=== PATIENT | female | born 1960 | race Caucasian/White ===

== ENCOUNTER 2017-08-05 11:01 | Inpatient (IN) | payer BC, OTHER ==
[~2017-08-05] VITALS: Ht 165.1 cm; Wt 95.0 kg
[2017-08-05] VITALS (8 sets, daily range): BP systolic 114–157; BP diastolic 59–84; PULSE 77–103; RESP 17–20; TEMP 97.4–99.4; O2SAT 97–99
--- NOTE | 2017-08-05 11:18 | PD ---
HPI Chief Complaint: Nosebleed Time Seen by Provider: 11:06 Travel History International Travel<30 days: No Contact w/Intl Traveler<30days: No Traveled to known affect area: No History of Present Illness HPI Patient had sinus surgery in July 25 in [place]. Patient is here vacationing. Onset of nosebleed which required an ER visit and packing which was performed at [facility], last hb 10. And she was referred to follow-up with Dr. Brandon. Apparently Dr. Brandon sent her [place] [facility] [place] possible interventional radiology procedure. Last meal was last night. Last drink was this morning at around 6 in the morning. The patient states that while in dr brandon's office packing was removed, clot was vacuumed and Dr. Brandon could not find a source of bleeding so he repacked and the bleeding continued, and he was not able to find the source, patient had bilateral anterior nares packed... PFSH Social History Tobacco Use: No Allergies-Medications (Allergen,Severity, Reaction): Coded Allergies: amoxicillin (Verified Allergy, Severe, rash, 08/05/17) clavulanic acid (Verified Allergy, Severe, rash, 08/05/17) Reported Meds & Prescriptions Reported Meds & Active Scripts Active Reported Synthroid (Levothyroxine Sodium) 112 Mcg Tab 112 Mcg PO DAILY Review of Systems Except as stated in HPI: all other systems reviewed are Neg General / Constitutional: No: Fever Eyes: No: Visual changes HENT: Positive: Nosebleed Cardiovascular: No: Chest Pain or Discomfort Respiratory: No: Shortness of Breath Gastrointestinal: No: Abdominal Pain Genitourinary: No: Dysuria Musculoskeletal: No: Pain Skin: No Rash Neurologic: No: Weakness Psychiatric: No: Depression Endocrine: No: Polydipsia Hematologic/Lymphatic: No: Easy Bruising Physical Exam Narrative GENERAL: SKIN: Warm and dry. HEAD: Atraumatic. Normocephalic. EYES: Pupils equal and round. No scleral icterus. No injection or drainage. ENT: No nasal bleeding or discharge. Mucous membranes pink and moist. NECK: Trachea midline. No JVD. CARDIOVASCULAR: Regular rate and rhythm. RESPIRATORY: No accessory muscle use. Clear to auscultation. Breath sounds equal bilaterally. GASTROINTESTINAL: Abdomen soft, non-tender, nondistended. Hepatic and splenic margins not palpable. MUSCULOSKELETAL: Extremities without clubbing, cyanosis, or edema. No obvious deformities. NEUROLOGICAL: Awake and alert. No obvious cranial nerve deficits. Motor grossly within normal limits. Five out of 5 muscle strength in the arms and legs. Normal speech. PSYCHIATRIC: Appropriate mood and affect; insight and judgment normal. Data Data Last Documented VS Vital Signs Date Time Temp Pulse Resp B/P (MAP) Pulse Ox O2 Delivery O2 Flow Rate FiO2 08/05/17 11:59 98 Room Air 08/05/17 11:15 99.4 103 20 114/59 (77) Orders Orders Invasive Rad Dept Consult (08/05/17 ) Complete Blood Count With Diff (08/05/17 11:29) Comprehensive Metabolic Panel (08/05/17 11:29) Prothrombin Time / Inr (Pt) (08/05/17 11:29) Act Partial Throm Time (Ptt) (08/05/17 11:29) Iv Access Insert/Monitor (08/05/17 11:29) Ecg Monitoring (08/05/17 11:29) Oximetry (08/05/17 11:29) Type And Screen (08/05/17 11:29) Midazolam Inj (Versed Inj) (08/05/17 12:34) Fentanyl Inj (Fentanyl Inj) (08/05/17 12:34) Labs Laboratory Tests Test 08/05/17 12:10 White Blood Count 9.0 TH/MM3 Red Blood Count 2.72 MIL/MM3 Hemoglobin 8.2 GM/DL Hematocrit 24.2 % Mean Corpuscular Volume 89.0 FL Mean Corpuscular Hemoglobin 30.3 PG Mean Corpuscular Hemoglobin Concent 34.1 % Red Cell Distribution Width 13.6 % Platelet Count 222 TH/MM3 Mean Platelet Volume 10.2 FL Neutrophils (%) (Auto) 82.8 % Lymphocytes (%) (Auto) 13.0 % Monocytes (%) (Auto) 3.6 % Eosinophils (%) (Auto) 0.1 % Basophils (%) (Auto) 0.5 % Neutrophils # (Auto) 7.5 TH/MM3 Lymphocytes # (Auto) 1.2 TH/MM3 Monocytes # (Auto) 0.3 TH/MM3 Eosinophils # (Auto) 0.0 TH/MM3 Basophils # (Auto) 0.0 TH/MM3 CBC Comment DIFF FINAL Differential Comment Prothrombin Time 11.3 SEC Prothromb Time International Ratio 1.1 RATIO Activated Partial Thromboplast Time 20.8 SEC Blood Urea Nitrogen 28 MG/DL Creatinine 0.64 MG/DL Random Glucose 109 MG/DL Total Protein 5.9 GM/DL Albumin 2.9 GM/DL Calcium Level 8.0 MG/DL Alkaline Phosphatase 66 U/L Aspartate Amino Transf (AST/SGOT) 8 U/L Alanine Aminotransferase (ALT/SGPT) 12 U/L Total Bilirubin 0.3 MG/DL Sodium Level 145 MEQ/L Potassium Level 3.9 MEQ/L Chloride Level 113 MEQ/L Carbon Dioxide Level 23.5 MEQ/L Anion Gap 9 MEQ/L Estimat Glomerular Filtration Rate 96 ML/MIN MDM Medical Decision Making Medical Screen Exam Complete: Yes Emergency Medical Condition: Yes Medical Record Reviewed: Yes Differential Diagnosis Anterior versus posterior versus postop bleeding Narrative Course As of 1257 the patient was transported to IR by transportation tech. CBC shows no leukocytosis, normal platelet count, however hemoglobin of 8.2 which was 10 when he was packed at [facility] Coagulation profile is within normal limits Electrolytes are within normal limits normal liver function normal kidney function Physician Communication Physician Communication [id number] on hold to speak with Dr. Brandon ENT... Dr. Jimenes to recommended IR for coagulation of bleeding, and also recommended admission for observation to the hospitalist group and to be consulted Diagnosis Primary Impression: Continued anterior epistaxis despite bilateral nasal packing Additional Impression: Interventional radiology procedure required Francesco Pinto MD Aug 05, 2017 11:18
[2017-08-05] MEDS ORDERED: SYNT112T PO (11:22)
[2017-08-05] MEDS ORDERED: fentaNYL CITRATE 250 MCG/5 ML AMP ONE (12:34)
[2017-08-05] MEDS ORDERED: MIDAZOLAM HCL 2 MG/2 ML VIAL ONE ×2 (12:34→14:21)
[2017-08-05 12:36] LABS: AUTOMATED NEUTROPHIL # 7.5 TH/MM3 (1.8-7.7); BASOPHIL % 0.5 % (0.0-2.0); EOSINOPHIL % 0.1 % (0.0-4.0); HEMATOCRIT 24.2 % (35.0-46.0); HEMOGLOBIN 8.2 GM/DL (11.6-15.3); LYMPHOCYTE # 1.2 TH/MM3 (1.0-4.8); MEAN CORPUSCULAR HEMOGLOBIN 30.3 PG (27.0-34.0); MEAN CORPUSCULAR HGB CONC 34.1 % (32.0-36.0); MEAN PLATELET VOLUME 10.2 FL (7.0-11.0); MONO % 3.6 % (0.0-8.0); MONOCYTE # 0.3 TH/MM3 (0-0.9); NEUT % 82.8 % (16.0-70.0); PLATELET COUNT 222 TH/MM3 (150-450); RED BLOOD COUNT 2.72 MIL/MM3 (4.00-5.30); RED CELL DISTRIBUTION WIDTH 13.6 % (11.6-17.2)
[2017-08-05 12:49] LABS: ALBUMIN 2.9 GM/DL (3.4-5.0); ALT (GPT) 12 U/L (10-53); AST (GOT) 8 U/L (15-37); BICARBONATE 23.5 MEQ/L (21.0-32.0); BLOOD UREA NITROGEN 28 MG/DL (7-18); CHLORIDE 113 MEQ/L (98-107); CREATININE 0.64 MG/DL (0.50-1.00); GLOMERULAR FILTRATION RATE 96 ML/MIN (>89); GLUCOSE,RANDOM 109 MG/DL (74-106); PROTHROMBIN TIME - PATIENT 11.3 SEC (9.8-11.6); SODIUM (NA) 145 MEQ/L (136-145)
[2017-08-05 12:50] LABS: INTERNATIONAL NORMALIZED RATIO 1.1 RATIO
[2017-08-05 12:52] LABS: ALKALINE PHOSPHATASE 66 U/L (45-117); TOTAL BILIRUBIN ADULT 0.3 MG/DL (0.2-1.0); TOTAL PROTEIN 5.9 GM/DL (6.4-8.2)
[2017-08-05] MEDS ORDERED: ONDANSETRON HCL 4 MG/2 ML VIAL IVP PRN (13:30)
[2017-08-05] MEDS ORDERED: SENNOSIDES 8.6 MG TAB PO PRN (13:30)
[2017-08-05] MEDS ORDERED: ACETAMINOPHEN 325 MG TAB PO PRN ×2 (13:30)
[2017-08-05] MEDS ORDERED: LACTULOSE SYRUP 20 GM/30 ML CUP PO PRN (13:30)
[2017-08-05] MEDS ORDERED: NALOXONE HCL 0.4 MG/ML AMP IV PUSH PRN (13:30)
[2017-08-05] MEDS ORDERED: traMADol HCL 50 MG TAB PO PRN (13:30)
[2017-08-05] MEDS ORDERED: MAGNESIUM HYDROXIDE SUSP 30 ML CUP PO PRN (13:30)
[2017-08-05] MEDS ORDERED: SODIUM CHLORIDE 0.9% FLUSH 10 ML FLUSH IV FLUSH PRN (13:30)
[2017-08-05] MEDS ORDERED: BISACODYL 10 MG SUPP RECTAL PRN (13:30)
[2017-08-05] MEDS ORDERED: LORazepam 2 MG/ML VIAL ONE (13:31)
[2017-08-05] MEDS ORDERED: IODIXANOL 320 MG/ML 50 ML VIAL (for RAD SPEC) I-ARTERIAL ONE (13:32)
[2017-08-05] MEDS ORDERED: NITROGLYCERIN 1000 MCG/5 ML VIAL OTHER ONE (13:32)
[2017-08-05] MEDS ORDERED: VERAPAMIL HCL 5 MG/2 ML VIAL ONE (14:12)
[2017-08-05] MEDS ORDERED: NITROGLYCERIN 2% OINT 1 GM PACKET ONE (14:14)
[2017-08-05] MEDS ORDERED: SODIUM CHLORIDE 0.9% INJ 10 ML ONE (14:51)
[2017-08-05] MEDS ORDERED: PROTAMINE SULFATE 50 MG/5 ML VIAL ONE (15:10)
--- NOTE | 2017-08-05 15:56 | PD.RAD ---
Post Procedure Progress Note Pre Procedure Diagnosis: (1) Post surgical epistaxis Post Procedure Diagnosis: (1) Post surgical epistaxis Procedure Date: Aug 05, 2017 Supervising Radiologist: Caden Holguin Proceduralist/Assist: Geovanny Mayfield RT(R), Alysia Ricketts RT(R) Anesthesia: Local, Analgesia, Conscious Sedation Plan of Activity Patient to Unit: ROPU Patient Condition: Good See PACS Report for procedural detail/treatment Vascular-Arterial Procedure Procedure 1 Procedure Site: Right Carotid (maxillary artery) Procedure(s): Angiogram, Embolization (particles and coils) Access Access Site(s): Right Femoral Artery Closure Site(s): Right manual pressure Findings: No active bleed identified (packing in place). Right maxillary artery embolized with 300-500 micron particles and 3mm tornado coils. Caden Holguin MD Aug 05, 2017 15:56
--- NOTE | 2017-08-05 17:03 | HHI.HP ---
[facility]Staff Admission Diagnosis REFRACTORY ANTERIOR EPISTAXIS Diagnoses: Chief Complaint: epistaxis Travel History International Travel<30 Days: No Contact w/Intl Traveler <30 Da: No Traveled to Known Affected Are: No History of Present Illness This is a 57-year-old female who was sent from her ENT clinic because of epistaxis. Started 2 days ago as intermittent bleeding from both nostrils worse on the right not related to trauma. Patient had nasal polyps removed from both nostrils about 10 days ago in [place]. She had nasal packing at [facility] yesterday. Today she started bleeding again and went to see Dr. Brandon who was not able to visualize the source of bleeding and was sent here for IR procedure. Dr. Holguin embolized the right maxillary artery with 300-500 micron particles and 3mm tornado coils. At this time patient seen in the recovery room with nasal packing. There is no active bleeding. Denies weakness, dizziness, chest pain and shortness of breath. States she was nauseous and vomited ingested blood yesterday. All other systems reviewed negative Review of Systems Except as stated in HPI: all other systems reviewed are Neg Past Family Social History Past Medical History As previously mentioned. Hypothyroidism Past Surgical History Hysterectomy, hernia repair, sinus surgery and multiple orthopedic surgery Reported Medications Levothyroxine. Occasional meloxicam Allergies: Coded Allergies: amoxicillin (Verified Allergy, Severe, rash, 08/05/17) clavulanic acid (Verified Allergy, Severe, rash, 08/05/17) Family History No history of bleeding. Social History Occasional alcohol use does not smoke Physical Exam Vital Signs Vital Signs Date Time Temp Pulse Resp B/P (MAP) Pulse Ox O2 Delivery O2 Flow Rate FiO2 08/05/17 16:15 84 18 140/75 (96) 97 08/05/17 16:00 85 18 140/80 (100) 98 08/05/17 15:45 97.4 77 18 138/80 (99) 98 08/05/17 11:59 98 Room Air 08/05/17 11:15 99.4 103 20 114/59 (77) 99 Physical Exam GENERAL: This is a well-nourished, well-developed patient, in no apparent distress. SKIN: No rashes, ecchymoses or lesions. Cool and dry. HEAD: Atraumatic. Normocephalic. No temporal or scalp tenderness. EYES: Pupils equal round and reactive. Extraocular motions intact. No scleral icterus. No injection or drainage. ENT: Nasal packing in place with no active bleeding NECK: Trachea midline. No JVD or lymphadenopathy. Supple, nontender, no meningeal signs. CARDIOVASCULAR: Regular rate and rhythm without murmurs, gallops, or rubs. RESPIRATORY: Clear to auscultation. Breath sounds equal bilaterally. No wheezes , rales, or rhonchi. GASTROINTESTINAL: Abdomen soft, non-tender, nondistended. No guarding. MUSCULOSKELETAL: Extremities without clubbing, cyanosis, or edema. No joint tenderness, effusion, or edema noted. No calf tenderness. Negative Homans sign bilaterally. NEUROLOGICAL: Awake and alert. Cranial nerves II through XII intact. Motor and sensory grossly within normal limits. Five out of 5 muscle strength in all muscle groups. Normal speech. Laboratory Laboratory Tests Test 08/05/17 12:10 White Blood Count 9.0 Red Blood Count 2.72 Hemoglobin 8.2 Hematocrit 24.2 Mean Corpuscular Volume 89.0 Mean Corpuscular Hemoglobin 30.3 Mean Corpuscular Hemoglobin Concent 34.1 Red Cell Distribution Width 13.6 Platelet Count 222 Mean Platelet Volume 10.2 Neutrophils (%) (Auto) 82.8 Lymphocytes (%) (Auto) 13.0 Monocytes (%) (Auto) 3.6 Eosinophils (%) (Auto) 0.1 Basophils (%) (Auto) 0.5 Neutrophils # (Auto) 7.5 Lymphocytes # (Auto) 1.2 Monocytes # (Auto) 0.3 Eosinophils # (Auto) 0.0 Basophils # (Auto) 0.0 CBC Comment DIFF FINAL Differential Comment Prothrombin Time 11.3 Prothromb Time International Ratio 1.1 Activated Partial Thromboplast Time 20.8 Blood Urea Nitrogen 28 Creatinine 0.64 Random Glucose 109 Total Protein 5.9 Albumin 2.9 Calcium Level 8.0 Alkaline Phosphatase 66 Aspartate Amino Transf (AST/SGOT) 8 Alanine Aminotransferase (ALT/SGPT) 12 Total Bilirubin 0.3 Sodium Level 145 Potassium Level 3.9 Chloride Level 113 Carbon Dioxide Level 23.5 Anion Gap 9 Estimat Glomerular Filtration Rate 96 Result Diagram: 08/05/17 1210 08/05/17 1210 Caprini VTE Risk Assessment Caprini VTE Risk Assessment: No/Low Risk (score <= 1) Caprini Risk Assessment Model Point Value = 1 Point Value = 2 Point Value = 3 Point Value = 5 Age 41-60 Minor surgery BMI > 25 kg/m2 Swollen legs Varicose veins or History of unexplained or recurrent spontaneous Oral contraceptives or hormone replacement Sepsis (< 1 month) Serious lung disease, including pneumonia (< 1 month) Abnormal pulmonary function Acute myocardial infarction Congestive heart failure (< 1 month) History of inflammatory bowel disease Medical patient at bed rest Age 61-74 Arthroscopic surgery Major open surgery (> 45 min) Laparoscopic surgery (> 45 min) Malignancy Confined to bed (> 72 hours) Immobilizing plaster cast Central venous access Age >= 75 History of VTE Family history of VTE Factor V Leiden Prothrombin [id number] Lupus anticoagulant Anticardiolipin antibodies Elevated serum homocysteine Heparin-induced thrombocytopenia Other congenital or acquired thrombophilia Stroke (< 1 month) Elective arthroplasty Hip, pelvis, or leg fracture Acute spinal cord injury (< 1 month) Prophylaxis Regimen Total Risk Factor Score Risk Level Prophylaxis Regimen 0-1 Low Early ambulation 2 Moderate Order ONE of the following: *Sequential Compression Device (SCD) *Heparin 5000 units SQ BID 3-4 Higher Order ONE of the following medications: *Heparin 5000 units SQ TID *Enoxaparin/Lovenox 40 mg SQ daily (WT < 150 kg, CrCl > 30 mL/min) *Enoxaparin/Lovenox 30 mg SQ daily (WT < 150 kg, CrCl > 10-29 mL/min) *Enoxaparin/Lovenox 30 mg SQ BID (WT < 150 kg, CrCl > 30 mL/min) AND/OR *Sequential Compression Device (SCD) 5 or more Highest Order ONE of the following medications: *Heparin 5000 units SQ TID (Preferred with Epidurals) *Enoxaparin/Lovenox 40 mg SQ daily (WT < 150 kg, CrCl > 30 mL/min) *Enoxaparin/Lovenox 30 mg SQ daily (WT < 150 kg, CrCl > 10-29 mL/min) *Enoxaparin/Lovenox 30 mg SQ BID (WT < 150 kg, CrCl > 30 mL/min) AND *Sequential Compression Device (SCD) Assessment and Plan Problem List: (1) Post surgical epistaxis Assessment and Plan This is a 57-year-old female who was sent from her ENT clinic because of epistaxis. Started 2 days ago as intermittent bleeding from both nostrils worse on the right not related to trauma. Patient had nasal polyps removed from both nostrils about 10 days ago in [place]. She had nasal packing at [facility] yesterday. Today she started bleeding again and went to see Dr. Brandon who was not able to visualize the source of bleeding and was sent here for IR procedure. Post surgical epistaxis status post embolization of the right maxillary artery with 300-500 micron particles and 3mm tornado coils. Patient will be kept in the hospital for surgery in the morning by ENT. N.p.o. post midnight and start IV hydration. Pain management with tramadol and IV morphine. Anemia secondary to acute blood loss. Will monitor and transfuse to keep hemoglobin at least 7 Hypothyroidism. Stable continue levothyroxine DVT prophylaxis with SCD and early ambulation. Discussed Condition With Patient and sister Kiran Griffin MD Aug 05, 2017 17:03
--- NOTE | 2017-08-05 17:11 | RADRPT ---
EXAM DATE/TIME: 08/05/2017 13:00 [facility] COMPARISON: No previous studies available for comparison. INDICATIONS : Patient presents with persistent epistaxis post sinus surgery in need of angiogram and possible inter vention. MEDICAL HISTORY : Thyroid disease SURGICAL HISTORY : Hysterectomy Sinus polyp removal ENCOUNTER: Initial ACUITY: 1 day PAIN SCORE: 3/10 LOCATION: Headache FLUORO TIME: 14.5 minutes IMAGE SERIES: 10 ACCESS SITE: Right Femoral artery SEDATION TIME: 60 minutes CONTRAST: 1.) 60 cc Visipaque (iodixanol) MEDICATION(S): 1.) 1 mg lorazepam (Ativan) IV 2.) 250 mcg fentanyl (Sublimaze) IV 3.) 4 mg midazolam (Versed) IV 4.) 3000 units Heparin IV 5.) 200 mcg Nitroglycerin IV 6.) 30 mg Protamine IV Intra-procedural antibiotics were given as prescribed above. DEVICE(S): 1.) Right artery Maxillary embolic coil(s).018 3x2 Tornado 2.) Right artery Maxillary embolic coil(s).018 3x2 Tornado 3.) Right artery Maxillary PVA PROCEDURE : 1. Ultrasound-guided puncture of the radial artery. 2. Conscious sedation with continuous EKG and Oximetry monitoring. 3. Angiography of the right maxillary artery 4. particle embolization, right maxillary artery 5. coil embolization, right maxillary artery The risks, benefits and alternatives to the procedure were explained and verbal and written consent w as obtained. The site was prepped in sterile fashion. Full sterile technique was used, including cap, mask, steri le gloves and gown and a large sterile sheet. Hand hygiene and 2% chlorhexidine and/or betadine/alco hol prep was utilized per protocol for cutaneous antisepsis. Sterile gel and sterile probe cover wer e utilized for ultrasound guidance. The skin and subcutaneous tissues were infiltrated with local an esthetic solution. Using ultrasound guidance, a 21 gauge micropuncture needle was advanced into the right common femoral artery. The 018 wire was advanced through the needle over which the 3-4 dilator was placed. Through the outer 4 Albanian dilator, the 035 Glidewire was advanced into the abdominal aorta. 4 Albanian side-po rt sheath was advanced over the wire. Side port was aspirated, flushed and locked. A ESEQUIEL 2 catheter was used to select the brachiocephalic artery and subsequently the right common carot id. Contrast injection confirmed position. Roadmap was performed to identify the external carotid cir culation. Over a Magic torque wire, a JB2 and 4 Albanian side-port sheath were exchanged for a 70 cm 5 Albanian Rabbe which was placed in the common carotid artery. A verapamil flush bag was connected to th e side-port sheath. At this point, 1 inch nitroglycerin paste was placed on the right neck and the pa tient was administered 3000 units of heparin IV. A 100 cm 038 glide hockey-stick catheter was then advanced into the external carotid with the Glidewi re. A second flush bag was connected to the catheter. Through the catheter, the renegade hi Los micro catheter and microwire were advanced through the external carotid, past the middle meningeal and out the maxillary artery. Position was confirmed with positive contrast. This demonstrated some retrograd e flow through the maxillary artery probably due to proximal vasospasm. This was treated by opening u p the verapamil drip through the carrier sheath and adding 200 mcg of nitroglycerin through the micro catheter. There was zoroastrianism of antegrade flow. Approximately 1 cc of 300-500 PVA particles were then injected through the microcatheter into the right maxillary artery. With reduction of antegrade flow, a series of 3, 3 mm Tornado coils were placed into the maxillary artery with cessation of ante grade flow The puncture site was closed with manual pressure and hemostasis was obtained. The patient tolerated the procedure well and there were no complications. Conscious sedation was performed with the prescribed dosages and duration as above in the presence of an independent trained radiology nurse to assist in the monitoring of the patient. EKG and oximetry remained stable throughout the procedure. CONCLUSION: Right maxillary artery embolization with particles and coils as above. Caden Holguin MD on August 05, 2017 at 16:59 Board Certified Radiologist. This report was verified electronically.
[2017-08-05] MEDS: NS + KCL 20 MEQ INJ 1,000 ML IV SCH (19:37)
[2017-08-05] MEDS: DOCUSATE SODIUM 50 MG/SENNA 8.6 MG TAB PO SCH (21:00)
[2017-08-05] MEDS: SODIUM CHLORIDE 0.9% FLUSH 10 ML FLUSH IV FLUSH SCH (21:00)
[2017-08-06] VITALS (10 sets, daily range): BP systolic 107–137; BP diastolic 55–70; PULSE 82–98; RESP 14–18; TEMP 98.2–98.7; O2SAT 97–100
[2017-08-06] MEDS: NS + KCL 20 MEQ INJ 1,000 ML IV SCH ×2 (02:19→16:36)
[2017-08-06] MEDS: LEVOTHYROXINE SODIUM 112 MCG TAB PO SCH (05:38)
[2017-08-06 06:44] LABS: AUTOMATED NEUTROPHIL # 5.8 TH/MM3 (1.8-7.7); BASOPHIL % 0.6 % (0.0-2.0); EOSINOPHIL % 0.3 % (0.0-4.0); LYMPH % 20.5 % (9.0-44.0); LYMPHOCYTE # 1.6 TH/MM3 (1.0-4.8); MEAN CELL VOLUME 88.2 FL (80.0-100.0); MEAN CORPUSCULAR HEMOGLOBIN 29.7 PG (27.0-34.0); MEAN CORPUSCULAR HGB CONC 33.7 % (32.0-36.0); MEAN PLATELET VOLUME 9.7 FL (7.0-11.0); MONO % 5.8 % (0.0-8.0); MONOCYTE # 0.5 TH/MM3 (0-0.9); NEUT % 72.8 % (16.0-70.0); PLATELET COUNT 193 TH/MM3 (150-450); RED CELL DISTRIBUTION WIDTH 13.9 % (11.6-17.2)
[2017-08-06 06:59] LABS: HEMATOCRIT 20.3 % (35.0-46.0); HEMOGLOBIN 6.8 GM/DL (11.6-15.3)
[2017-08-06 07:35] LABS: BICARBONATE 24.2 MEQ/L (21.0-32.0); CALCIUM 8.1 MG/DL (8.5-10.1); CREATININE 0.68 MG/DL (0.50-1.00)
[2017-08-06] MEDS ORDERED: SODIUM CHLOR 0.9% 250 ML INJ 250 ML IV ONE (07:45)
[2017-08-06] MEDS: DOCUSATE SODIUM 50 MG/SENNA 8.6 MG TAB PO SCH ×2 (09:00→20:46)
[2017-08-06] MEDS: SODIUM CHLORIDE 0.9% FLUSH 10 ML FLUSH IV FLUSH SCH ×2 (09:00→20:46)
--- NOTE | 2017-08-06 09:20 | HHI.PR ---
Subjective Remarks Packing in place. No active bleed Objective Vital Signs Date Time Temp Pulse Resp B/P (MAP) Pulse Ox O2 Delivery O2 Flow Rate FiO2 08/06/17 08:03 98.5 98 18 129/65 (86) 99 08/06/17 02:14 98.4 90 14 127/67 (87) 100 08/05/17 20:53 99.1 96 18 123/61 (81) 98 08/05/17 17:45 88 18 157/84 (108) 99 08/05/17 17:15 83 17 153/83 (106) 98 08/05/17 16:15 84 18 140/75 (96) 97 08/05/17 16:00 85 18 140/80 (100) 98 08/05/17 15:45 97.4 77 18 138/80 (99) 98 08/05/17 11:59 98 Room Air 08/05/17 11:15 99.4 103 20 114/59 (77) 99 I/O 08/05/17 08/05/17 08/05/17 08/06/17 08/06/17 08/06/17 07:00 15:00 23:00 07:00 15:00 23:00 Intake Total 120 ml Balance 120 ml Intake Oral 120 ml # Voids 3 Result Diagram: 08/06/17 0600 08/06/17 0600 Assessment and Plan Assessment and Plan Significant epistaxis. Agree with transfusion. Would keep in house today. Started Ancef. Would keep packing in place until she returns home to [place]. Faustino Brandon MD Aug 06, 2017 09:20
[2017-08-06] MEDS: ceFAZolin 1,000 MG/NS 100 ML IV SCH ×4 (09:27→16:35)
--- NOTE | 2017-08-06 09:50 | HHI.PR ---
Subjective Remarks in no acute distress. but still with some nosebleed. now complaining of chest pain. Objective Vitals Vital Signs Date Time Temp Pulse Resp B/P (MAP) Pulse Ox O2 Delivery O2 Flow Rate FiO2 08/06/17 08:03 98.5 98 18 129/65 (86) 99 08/06/17 02:14 98.4 90 14 127/67 (87) 100 08/05/17 20:53 99.1 96 18 123/61 (81) 98 08/05/17 17:45 88 18 157/84 (108) 99 08/05/17 17:15 83 17 153/83 (106) 98 08/05/17 16:15 84 18 140/75 (96) 97 08/05/17 16:00 85 18 140/80 (100) 98 08/05/17 15:45 97.4 77 18 138/80 (99) 98 08/05/17 11:59 98 Room Air 08/05/17 11:15 99.4 103 20 114/59 (77) 99 I/O 08/05/17 08/05/17 08/05/17 08/06/17 08/06/17 08/06/17 07:00 15:00 23:00 07:00 15:00 23:00 Intake Total 120 ml Balance 120 ml Intake Oral 120 ml # Voids 3 Result Diagram: 08/06/17 0600 08/06/17 0600 Imaging Last Impressions Embolization 08/05/17 0000 Signed Impressions: Service Date/Time: Saturday, August 05, 2017 13:00 - CONCLUSION: Right maxillary artery embolization with particles and coils as above. Caden Holguin MD Objective Remarks GENERAL: This is a well-nourished, well-developed patient, in no apparent distress. HEENT; nasal packing in place. CARDIOVASCULAR: Regular rate and regular rhythm without murmurs, gallops, or rubs. RESPIRATORY: Clear to auscultation. Breath sounds equal bilaterally. No wheezes , rales, or rhonchi. GASTROINTESTINAL: Abdomen soft, non-tender, nondistended. Normal, active bowel sounds MUSCULOSKELETAL: Extremities without clubbing, cyanosis, or edema. NEURO: Alert & Oriented x4 to person, place, time, situation. Moves all ext x4 Medications and IVs Inpatient Medications Acetaminophen (Tylenol) 650 mg Q6H PRN PO PAIN SCALE 1 TO 2; Start 08/05/17 at 13:30 Bisacodyl (Dulcolax Supp) 10 mg DAILY PRN RECTAL SEVERE CONSITIPATION; Start at 13:30 Cefazolin Sodium 1000 mg/Sodium Chloride 100 ml @ 200 mls/hr Q8H IV Last administered on 08/06/17at 09:27; Start 08/06/17 at 09:00 Lactulose (Lactulose Liq) 30 ml DAILY PRN PO SEVERE CONSITIPATION; Start at 13:30 Levothyroxine Sodium (Synthroid) 112 mcg DAILY@0600 PO Last administered on at 05:38; Start 08/06/17 at 06:00 Magnesium Hydroxide (Milk Of Magnesia Liq) 30 ml Q12H PRN PO Mild constipation ; Start 08/05/17 at 13:30 Naloxone HCl (Narcan Inj) 0.4 mg UNSCH PRN IV PUSH SEE LABEL COMMENTS; Start at 13:30 Ondansetron HCl (Zofran Inj) 4 mg Q6H PRN IVP NAUSEA OR VOMITING; Start at 13:30 Potassium Chloride/Sodium Chloride 1,000 ml @ 84 mls/hr [id number] IV Last administered on 08/06/17at 02:19; Start 08/05/17 at 14:00 Senna/Docusate Sodium (Margarita-Colace) 1 tab BID PO ; Start 08/05/17 at 21:00 Sennosides (Senokot) 17.2 mg Q12H PRN PO Moderate constipation; Start 08/05/17 at 13:30 Sodium Chloride 250 ml @ 15 mls/hr ONCE ONCE IV ; Start 08/06/17 at 07:45; Stop 08/07/17 at 00:24 Sodium Chloride (NS Flush) 2 ml BID IV FLUSH ; Start 08/05/17 at 21:00 Tramadol HCl (Ultram) 100 mg Q4H PRN PO PAIN SCALE 6 TO 10; Start 08/05/17 at 13:30 A/P Problem List: (1) Post surgical epistaxis Assessment and Plan This is a 57-year-old female who was sent from her ENT clinic because of epistaxis. Started 2 days ago as intermittent bleeding from both nostrils worse on the right not related to trauma. Patient had nasal polyps removed from both nostrils about 10 days ago in [place]. She had nasal packing at [facility] yesterday. Post surgical epistaxis status post embolization of the right maxillary artery with 300-500 micron particles and 3mm tornado coils. ENT f/u appreciated. Anemia secondary to acute blood loss. will transfuse with PRBC and monitor H/H. chest pain; will check troponin/ EKG and CXR. Hypothyroidism. Stable continue levothyroxine DVT prophylaxis with SCD and early ambulation. Discharge Planning not ready for discharge today. Yared Carreon MD Aug 06, 2017 09:50
--- NOTE | 2017-08-06 10:06 | RADRPT ---
EXAM DATE/TIME: 08/06/2017 09:47 [facility] COMPARISON: No previous studies available for comparison. INDICATIONS : Chest pain today. MEDICAL HISTORY : None. SURGICAL HISTORY : None. ENCOUNTER: Initial ACUITY: 1 day PAIN SCORE: 5/10 LOCATION: Bilateral chest FINDINGS: A single view of the chest demonstrates the lungs to be symmetrically aerated without evidence of mas s, infiltrate or effusion. The cardiomediastinal contours are unremarkable. Osseous structures are intact. CONCLUSION: No acute disease. Rashaun Moy MD FACR on August 06, 2017 at 10:04 Board Certified Radiologist. This report was verified electronically.
--- NOTE | 2017-08-06 11:33 | EKG ---
Date Performed: 08/06/2017 Time Performed: 09:59:25 PTAGE: 57 years EKG: Sinus rhythm NONSPECIFIC T-WAVE ABNORMALITY BORDERLINE ECG NO PREVIOUS TRACING DOCTOR: Raymundo De La Cruz Interpretating Date/Time 08/06/2017 11:31:49
[2017-08-06 18:50] LABS: HEMATOCRIT 22.2 % (35.0-46.0); HEMOGLOBIN 7.6 GM/DL (11.6-15.3)
[2017-08-07] MEDS: NS + KCL 20 MEQ INJ 1,000 ML IV SCH ×2 (00:39→16:50)
[2017-08-07] MEDS: ceFAZolin 1,000 MG/NS 100 ML IV SCH ×6 (00:39→16:50)
[2017-08-07 04:10] VITALS: BP 118/69; PULSE 88; RESP 16; O2SAT 99
[2017-08-07] MEDS: LEVOTHYROXINE SODIUM 112 MCG TAB PO SCH (05:43)
[2017-08-07 07:58] VITALS: BP 116/61; PULSE 78; RESP 19; TEMP 98; O2SAT 97
[2017-08-07] MEDS: SODIUM CHLORIDE 0.9% FLUSH 10 ML FLUSH IV FLUSH SCH ×2 (09:12→21:00)
[2017-08-07] MEDS: DOCUSATE SODIUM 50 MG/SENNA 8.6 MG TAB PO SCH ×2 (09:13→21:00)
--- NOTE | 2017-08-07 09:41 | HHI.PR ---
Subjective Remarks in no acute distress. still with some nosebleed- nasal packing in place. Objective Vitals Vital Signs Date Time Temp Pulse Resp B/P (MAP) Pulse Ox O2 Delivery O2 Flow Rate FiO2 08/07/17 07:58 98.0 78 19 116/61 (79) 97 08/07/17 04:10 88 16 118/69 (85) 99 08/06/17 23:51 98.5 87 16 107/67 (80) 97 08/06/17 21:23 98.2 93 16 116/59 (78) 97 08/06/17 19:05 98.7 88 17 133/66 (88) 99 08/06/17 15:54 98.3 95 18 137/70 (92) 99 08/06/17 15:33 98.5 89 16 109/55 98 08/06/17 12:33 98.4 82 18 130/68 (88) 100 08/06/17 11:57 98.4 86 16 110/57 99 08/06/17 11:27 98.3 87 16 116/57 99 I/O 08/06/17 08/06/17 08/06/17 08/07/17 08/07/17 08/07/17 07:00 15:00 23:00 07:00 15:00 23:00 Intake Total 130 ml 860 ml Balance 130 ml 860 ml Intake Oral 120 ml Packed Cells 850 ml Blood Product IV Normal Saline Flush 10 ml 10 ml # Voids 3 3 Result Diagram: 08/06/17 1706 08/06/17 0600 Imaging Last Impressions Chest X-Ray 08/06/17 0000 Signed Impressions: Service Date/Time: Sunday, August 06, 2017 09:47 - CONCLUSION: No acute disease. Rashaun Moy MD FACR Embolization 08/05/17 0000 Signed Impressions: Service Date/Time: Saturday, August 05, 2017 13:00 - CONCLUSION: Right maxillary artery embolization with particles and coils as above. Caden Holguin MD Objective Remarks GENERAL: This is a well-nourished, well-developed patient, in no apparent distress. HEENT; nasal packing in place. CARDIOVASCULAR: Regular rate and regular rhythm without murmurs, gallops, or rubs. RESPIRATORY: Clear to auscultation. Breath sounds equal bilaterally. No wheezes , rales, or rhonchi. GASTROINTESTINAL: Abdomen soft, non-tender, nondistended. Normal, active bowel sounds MUSCULOSKELETAL: Extremities without clubbing, cyanosis, or edema. NEURO: Alert & Oriented x4 to person, place, time, situation. Moves all ext x4 Medications and IVs Inpatient Medications Acetaminophen (Tylenol) 650 mg Q6H PRN PO PAIN SCALE 1 TO 2; Start 08/05/17 at 13:30 Bisacodyl (Dulcolax Supp) 10 mg DAILY PRN RECTAL SEVERE CONSITIPATION; Start at 13:30 Cefazolin Sodium 1000 mg/Sodium Chloride 100 ml @ 200 mls/hr Q8H IV Last administered on 08/07/17at 09:13; Start 08/06/17 at 09:00 Lactulose (Lactulose Liq) 30 ml DAILY PRN PO SEVERE CONSITIPATION; Start at 13:30 Levothyroxine Sodium (Synthroid) 112 mcg DAILY@0600 PO Last administered on at 05:43; Start 08/06/17 at 06:00 Magnesium Hydroxide (Milk Of Magnesia Liq) 30 ml Q12H PRN PO Mild constipation ; Start 08/05/17 at 13:30 Naloxone HCl (Narcan Inj) 0.4 mg UNSCH PRN IV PUSH SEE LABEL COMMENTS; Start at 13:30 Ondansetron HCl (Zofran Inj) 4 mg Q6H PRN IVP NAUSEA OR VOMITING; Start at 13:30 Potassium Chloride/Sodium Chloride 1,000 ml @ 84 mls/hr [id number] IV Last administered on 08/07/17at 00:39; Start 08/05/17 at 14:00 Senna/Docusate Sodium (Margarita-Colace) 1 tab BID PO ; Start 08/05/17 at 21:00 Sennosides (Senokot) 17.2 mg Q12H PRN PO Moderate constipation; Start 08/05/17 at 13:30 Sodium Chloride 250 ml @ 15 mls/hr ONCE ONCE IV Last administered on at 11:42; Start 08/06/17 at 07:45; Stop 08/07/17 at 00:24; Status DC Sodium Chloride (NS Flush) 2 ml BID IV FLUSH Last administered on 08/07/17at 09: 12; Start 08/05/17 at 21:00 Tramadol HCl (Ultram) 100 mg Q4H PRN PO PAIN SCALE 6 TO 10; Start 08/05/17 at 13:30 A/P Problem List: (1) Post surgical epistaxis Assessment and Plan This is a 57-year-old female who was sent from her ENT clinic because of epistaxis. Started 2 days ago as intermittent bleeding from both nostrils worse on the right not related to trauma. Patient had nasal polyps removed from both nostrils about 10 days ago in [place]. She had nasal packing at [facility] yesterday. Post surgical epistaxis status post embolization of the right maxillary artery with 300-500 micron particles and 3mm tornado coils. awaiting IR and ENT f/u and recommendations. Anemia secondary to acute blood loss. transfused with PRBC- repeat H/H today. chest pain; CXR negative- troponin negative. Hypothyroidism. Stable continue levothyroxine DVT prophylaxis with SCD and early ambulation. Discharge Planning when cleared by ENT and IR- awaiting H/H. Yared Carreon MD Aug 07, 2017 09:41
[2017-08-07 11:55] LABS: HEMATOCRIT 22.7 % (35.0-46.0); HEMOGLOBIN 7.8 GM/DL (11.6-15.3); MEAN CORPUSCULAR HEMOGLOBIN 30.4 PG (27.0-34.0); MEAN CORPUSCULAR HGB CONC 34.5 % (32.0-36.0); MEAN PLATELET VOLUME 9.2 FL (7.0-11.0); PLATELET COUNT 190 TH/MM3 (150-450); RED BLOOD COUNT 2.58 MIL/MM3 (4.00-5.30); RED CELL DISTRIBUTION WIDTH 14.2 % (11.6-17.2); WHITE BLOOD COUNT 7.1 TH/MM3 (4.0-11.0)
[2017-08-07 12:02] VITALS: BP 113/67; PULSE 85; RESP 19; TEMP 98.1; O2SAT 99
--- NOTE | 2017-08-07 13:57 | PD.RAD ---
Radiology Note Patient eating soup in room. States she is not 100% but feels better. Groin soft and dry. If tolerates lunch without emesis, OK to D/C from IR standpoint. Caden Holguin MD Aug 07, 2017 13:57
--- NOTE | 2017-08-07 14:10 | PD.RAD ---
Radiology Note Pt transfused yesterday with appropriate bump in H/H. Complains of ongoing ooze from right nares. No drop in H/H overnight, however. Discussed with Dr. Brandon from ENT. He has been in discussion with pts surgeon from [place] and they have collectivel decided to transfer pt to [facility] for further evaluation and possible therapy. Discussed with pt herself who agrees with plan Caden Holguin MD Aug 07, 2017 14:10
--- NOTE | 2017-08-07 14:21 | HHI.DCPOC ---
Discharge Care Plan Diagnosis: (1) Post surgical epistaxis Goals to Promote Your Health * To prevent worsening of your condition and complications * To maintain your health at the optimal level Directions to Meet Your Goals Take your medications as prescribed Follow your dietary instruction Follow activity as directed Keep your appointments as scheduled Take your immunizations and boosters as scheduled If your symptoms worsen call your PCP, if no PCP go to Urgent Care Center or Emergency Room Smoking is Dangerous to Your Health. Avoid second hand smoke Call the 24-hour hour crisis hotline for domestic abuse at Monica Fritz PA-C Aug 07, 2017 14:21
[2017-08-07 15:45] VITALS: BP 113/57; PULSE 86; RESP 18; TEMP 97.9; O2SAT 100
[2017-08-08 01:15] VITALS: BP 137/64; PULSE 86; RESP 16; TEMP 98.5; O2SAT 96
[2017-08-08] MEDS: NS + KCL 20 MEQ INJ 1,000 ML IV SCH ×2 (01:35→13:30)
[2017-08-08] MEDS: ceFAZolin 1,000 MG/NS 100 ML IV SCH ×6 (04:01→18:03)
[2017-08-08 04:23] VITALS: BP 127/58; PULSE 76; RESP 17; TEMP 98.7; O2SAT 98
[2017-08-08] MEDS: LEVOTHYROXINE SODIUM 112 MCG TAB PO SCH (06:00)
[2017-08-08 08:01] VITALS: BP 124/64; PULSE 76; RESP 20; TEMP 98.2; O2SAT 98
[2017-08-08 08:41] LABS: HEMATOCRIT 22.5 % (35.0-46.0); HEMOGLOBIN 7.7 GM/DL (11.6-15.3)
[2017-08-08] MEDS: DOCUSATE SODIUM 50 MG/SENNA 8.6 MG TAB PO SCH ×2 (09:00→22:30)
--- NOTE | 2017-08-08 09:03 | HHI.PR ---
Subjective Remarks Follow up for epistaxis. The patient reports continued bleeding around packing of the right nare and down the back of the throat. She denies any lightheadedness, dizziness, chest pain or shortness of breath. Awaiting transfer to [facility]. Objective Vitals Vital Signs Date Time Temp Pulse Resp B/P (MAP) Pulse Ox O2 Delivery O2 Flow Rate FiO2 08/08/17 08:01 98.2 76 20 124/64 (84) 98 08/08/17 04:23 98.7 76 17 127/58 (81) 98 08/08/17 01:15 98.5 86 16 137/64 (88) 96 08/07/17 15:45 97.9 86 18 113/57 (75) 100 08/07/17 12:02 98.1 85 19 113/67 (82) 99 I/O 08/07/17 08/07/17 08/07/17 08/08/17 08/08/17 08/08/17 07:00 15:00 23:00 07:00 15:00 23:00 Intake Total 200 ml Balance 200 ml Intake Oral 200 ml # Voids 5 Result Diagram: 08/08/17 0811 08/06/17 0600 Imaging Last Impressions Chest X-Ray 08/06/17 0000 Signed Impressions: Service Date/Time: Sunday, August 06, 2017 09:47 - CONCLUSION: No acute disease. Rashaun Moy MD FACR Embolization 08/05/17 0000 Signed Impressions: Service Date/Time: Saturday, August 05, 2017 13:00 - CONCLUSION: Right maxillary artery embolization with particles and coils as above. Caden Holguin MD Objective Remarks GENERAL: Well-developed, well-nourished female patient in [facility]. SKIN: Warm and dry. HEAD: Atraumatic. Normocephalic. EYES: Pupils equal and round. No scleral icterus. No injection or drainage. ENT: Right nasal packing in place with mixed fresh and dried blood around nare. Mucous membranes pink and moist. NECK: Trachea midline. CARDIOVASCULAR: Regular rate and rhythm. RESPIRATORY: No accessory muscle use. Clear to auscultation. Breath sounds equal bilaterally. GASTROINTESTINAL: Abdomen soft, non-tender, nondistended. MUSCULOSKELETAL: Extremities without clubbing, cyanosis, or edema. No obvious deformities. NEUROLOGICAL: Awake and alert. No obvious cranial nerve deficits. Motor grossly within normal limits. Normal speech. PSYCHIATRIC: Appropriate mood and affect; insight and judgment normal. Medications and IVs Current Medications Medications (Trade) Dose Ordered Sig/Odette Route Start Time Stop Time Status Last Admin Potassium Chloride/Sodium Chloride 1,000 ml @ 84 mls/hr [id number] IV 08/05/17 14:00 08/07/17 16:50 (NS Flush) 2 ml UNSCH PRN IV FLUSH 08/05/17 13:30 (NS Flush) 2 ml BID IV FLUSH 08/05/17 21:00 08/07/17 09:12 (Tylenol) 650 mg Q4H PRN PO 08/05/17 13:30 (Zofran Inj) 4 mg Q6H PRN IVP 08/05/17 13:30 (Tylenol) 650 mg Q6H PRN PO 08/05/17 13:30 (Ultram) 50 mg Q4H PRN PO 08/05/17 13:30 (Ultram) 100 mg Q4H PRN PO 08/05/17 13:30 (Narcan Inj) 0.4 mg UNSCH PRN IV PUSH 08/05/17 13:30 (Margarita-Colace) 1 tab BID PO 08/05/17 21:00 (Milk Of Magnesia Liq) 30 ml Q12H PRN PO 08/05/17 13:30 (Senokot) 17.2 mg Q12H PRN PO 08/05/17 13:30 (Dulcolax Supp) 10 mg DAILY PRN RECTAL 08/05/17 13:30 (Lactulose Liq) 30 ml DAILY PRN PO 08/05/17 13:30 (Synthroid) 112 mcg DAILY@0600 PO 08/06/17 06:00 08/08/17 06:00 Cefazolin Sodium 1000 mg/Sodium Chloride 100 ml @ 200 mls/hr Q8H IV 08/06/17 09:00 08/08/17 04:01 A/P Problem List: (1) Post surgical epistaxis Assessment and Plan 57-year-old female who was sent from her ENT clinic because of epistaxis. Started 2 days ago as intermittent bleeding from both nostrils worse on the right not related to trauma. Patient had nasal polyps removed from both nostrils about 10 days ago in [place]. She had nasal packing at [facility] just prior to arrival. Post surgical epistaxis: status post embolization of the right maxillary artery with 300-500 micron particles and 3mm tornado coils on 08/05. Patient with continued bleeding. Evaluated by IR and ENT, recommended transfer to [facility], awaiting bed availability at [facility]. Anemia secondary to acute blood loss: Transfused with 1u PRBC on 08/06. Continue to monitor H&H, currently stable with Hgb 7.7. Will transfuse if < 7. chest pain: atypical. CXR negative. Troponin negative. Improved. Hypothyroidism: Stable, continue levothyroxine DVT prophylaxis with SCD and early ambulation. Avoid chemoprophylaxis with ongoing bleeding as above. Discharge Planning Plan to transfer to [facility] when bed is available. Discussed with RN and case management. Attending Statement patient was seen and examined today. still with some oozing from the right nostril but she says that it's better today. awaiting transfer to located within [facility]. Monica Fritz PA-C Aug 08, 2017 09:03 Yared Carreon MD Aug 08, 2017 12:54
[2017-08-08] MEDS: SODIUM CHLORIDE 0.9% FLUSH 10 ML FLUSH IV FLUSH SCH ×2 (09:51→22:30)
[2017-08-08 12:12] VITALS: BP 96/80; PULSE 80; RESP 20; TEMP 97.9; O2SAT 98
[2017-08-08] MEDS: traMADol HCL 50 MG TAB PO PRN ×2 (14:18→22:30)
--- NOTE | 2017-08-08 14:31 | HHI.PR ---
Subjective Remarks Awaiting transfer to [facility]. No active bleed. Objective Vital Signs Date Time Temp Pulse Resp B/P (MAP) Pulse Ox O2 Delivery O2 Flow Rate FiO2 08/08/17 12:12 97.9 80 20 96/80 (85) 98 08/08/17 08:01 98.2 76 20 124/64 (84) 98 08/08/17 04:23 98.7 76 17 127/58 (81) 98 08/08/17 01:15 98.5 86 16 137/64 (88) 96 08/07/17 15:45 97.9 86 18 113/57 (75) 100 I/O 08/07/17 08/07/17 08/07/17 08/08/17 08/08/17 08/08/17 07:00 15:00 23:00 07:00 15:00 23:00 Intake Total 200 ml Balance 200 ml Intake Oral 200 ml # Voids 5 Result Diagram: 08/08/17 0811 08/06/17 0600 Assessment and Plan Assessment and Plan Severe right epistaxis requiring transfusing. Had bleeding post BERNARDO. It has slowed. Await transfer to Rhinology, Dr Keita at . Will keep bilateral packs in place. Faustino Brandon MD Aug 08, 2017 14:31
[2017-08-08] MEDS ORDERED: guaiFENesin E.R. 600 MG TAB PO ONE (15:00)
[2017-08-08 16:50] VITALS: BP 112/55; PULSE 74; RESP 20; TEMP 97.9; O2SAT 96
[2017-08-08 20:51] VITALS: BP 104/56; PULSE 62; RESP 18; TEMP 98.4; O2SAT 98
[2017-08-09] MEDS: ceFAZolin 1,000 MG/NS 100 ML IV SCH ×6 (01:11→17:00)
[2017-08-09] MEDS: NS + KCL 20 MEQ INJ 1,000 ML IV SCH ×2 (01:11→13:20)
[2017-08-09 04:13] VITALS: BP 108/55; PULSE 73; RESP 18; TEMP 98.4; O2SAT 96
[2017-08-09] MEDS: LEVOTHYROXINE SODIUM 112 MCG TAB PO SCH (05:20)
[2017-08-09 07:53] VITALS: BP 138/60; PULSE 77; RESP 18; TEMP 98.8; O2SAT 99
--- NOTE | 2017-08-09 08:00 | HHI.PR ---
Subjective Remarks Follow up for epistaxis. The patient reports continued oozing around packing and in back of throat. She reports pressure throughout the right face and ear. She states she hasn't been sleeping well because she can't breathe. Denies fevers/chills, lightheadedness, dizziness, chest pain, shortness of breath, or abdominal complaints. She is looking forward to transfer to [facility]. Objective Vitals Vital Signs Date Time Temp Pulse Resp B/P (MAP) Pulse Ox O2 Delivery O2 Flow Rate FiO2 08/09/17 07:53 98.8 77 18 138/60 (86) 99 08/09/17 04:13 98.4 73 18 108/55 (72) 96 08/08/17 20:51 98.4 62 18 104/56 (72) 98 08/08/17 16:50 97.9 74 20 112/55 (74) 96 08/08/17 12:12 97.9 80 20 96/80 (85) 98 08/08/17 08:01 98.2 76 20 124/64 (84) 98 I/O 08/08/17 08/08/17 08/08/17 08/09/17 08/09/17 08/09/17 07:00 15:00 23:00 07:00 15:00 23:00 Intake Total 200 ml 1100 ml Balance 200 ml 1100 ml Intake Oral 200 ml IV Total 1100 ml # Voids 3 Result Diagram: 08/08/17 0811 08/06/17 0600 Imaging Last Impressions Chest X-Ray 08/06/17 0000 Signed Impressions: Service Date/Time: Sunday, August 06, 2017 09:47 - CONCLUSION: No acute disease. Rashaun Moy MD FACR Embolization 08/05/17 0000 Signed Impressions: Service Date/Time: Saturday, August 05, 2017 13:00 - CONCLUSION: Right maxillary artery embolization with particles and coils as above. Caden Holguin MD Objective Remarks GENERAL: Well-developed, well-nourished female patient in [facility]. SKIN: Warm and dry. HEAD: Atraumatic. Normocephalic. EYES: Pupils equal and round. ENT: Right nasal packing in place with mixed fresh and dried blood around nare. Mucous membranes pink and moist. CARDIOVASCULAR: Regular rate and rhythm. No murmur appreciated. RESPIRATORY: No accessory muscle use. Clear to auscultation. Breath sounds equal bilaterally. GASTROINTESTINAL: Abdomen soft, non-tender, nondistended. MUSCULOSKELETAL: Extremities without clubbing, cyanosis, or edema. No obvious deformities. NEUROLOGICAL: Awake and alert. No obvious cranial nerve deficits. Motor grossly within normal limits. Normal speech. PSYCHIATRIC: Slightly anxious mood; insight and judgment normal. Medications and IVs Current Medications Medications (Trade) Dose Ordered Sig/Odette Route Start Time Stop Time Status Last Admin Potassium Chloride/Sodium Chloride 1,000 ml @ 84 mls/hr [id number] IV 08/05/17 14:00 08/09/17 01:11 (NS Flush) 2 ml UNSCH PRN IV FLUSH 08/05/17 13:30 (NS Flush) 2 ml BID IV FLUSH 08/05/17 21:00 08/08/17 09:51 (Tylenol) 650 mg Q4H PRN PO 08/05/17 13:30 (Zofran Inj) 4 mg Q6H PRN IVP 08/05/17 13:30 (Tylenol) 650 mg Q6H PRN PO 08/05/17 13:30 (Ultram) 50 mg Q4H PRN PO 08/05/17 13:30 (Ultram) 100 mg Q4H PRN PO 08/05/17 13:30 08/08/17 22:30 (Narcan Inj) 0.4 mg UNSCH PRN IV PUSH 08/05/17 13:30 (Margarita-Colace) 1 tab BID PO 08/05/17 21:00 (Milk Of Magnesia Liq) 30 ml Q12H PRN PO 08/05/17 13:30 (Senokot) 17.2 mg Q12H PRN PO 08/05/17 13:30 (Dulcolax Supp) 10 mg DAILY PRN RECTAL 08/05/17 13:30 (Lactulose Liq) 30 ml DAILY PRN PO 08/05/17 13:30 (Synthroid) 112 mcg DAILY@0600 PO 08/06/17 06:00 08/09/17 05:20 Cefazolin Sodium 1000 mg/Sodium Chloride 100 ml @ 200 mls/hr Q8H IV 08/06/17 09:00 08/09/17 01:11 A/P Problem List: (1) Post surgical epistaxis Assessment and Plan 57-year-old female who was sent from her ENT clinic because of epistaxis. Started 2 days ago as intermittent bleeding from both nostrils worse on the right not related to trauma. Patient had nasal polyps removed from both nostrils about 10 days ago in [place]. She had nasal packing at [facility] just prior to arrival. Post surgical epistaxis: status post embolization of the right maxillary artery with 300-500 micron particles and 3mm tornado coils on 08/05. Patient with continued bleeding. Evaluated by IR and ENT, recommended transfer to [facility], awaiting bed availability at [facility]. Anemia secondary to acute blood loss: Transfused with 1u PRBC on 08/06. Continue to monitor H&H, currently stable with Hgb 7.7. Will transfuse if < 7. chest pain: atypical. CXR negative. Troponin negative. Improved. Hypothyroidism: Stable, continue levothyroxine DVT prophylaxis with SCD and early ambulation. Avoid chemoprophylaxis with ongoing bleeding as above. Discharge Planning Plan to transfer to [facility] when bed is available. Discussed with RN and case management. Monica Fritz PA-C Aug 09, 2017 8:00 am
--- NOTE | 2017-08-09 08:18 | HHI.PR ---
Subjective Remarks Remains stable. Awaiting transfer. Objective Vital Signs Date Time Temp Pulse Resp B/P (MAP) Pulse Ox O2 Delivery O2 Flow Rate FiO2 08/09/17 07:53 98.8 77 18 138/60 (86) 99 08/09/17 04:13 98.4 73 18 108/55 (72) 96 08/08/17 20:51 98.4 62 18 104/56 (72) 98 08/08/17 16:50 97.9 74 20 112/55 (74) 96 08/08/17 12:12 97.9 80 20 96/80 (85) 98 I/O 08/08/17 08/08/17 08/08/17 08/09/17 08/09/17 08/09/17 07:00 15:00 23:00 07:00 15:00 23:00 Intake Total 200 ml 1100 ml Balance 200 ml 1100 ml Intake Oral 200 ml IV Total 1100 ml # Voids 3 Result Diagram: 08/08/17 0811 08/06/17 0600 Assessment and Plan Assessment and Plan Severe right posterior epistaxis. Was transfused. Need continuing care from [facility], Dr Keita at [facility]. Awaiting transfer. Faustino Brandon MD Aug 09, 2017 08:18
[2017-08-09] MEDS ORDERED: ALPRAZolam 0.25 MG TAB PO ONE (08:30)
[2017-08-09] MEDS: DOCUSATE SODIUM 50 MG/SENNA 8.6 MG TAB PO SCH ×2 (09:00→21:00)
[2017-08-09] MEDS: SODIUM CHLORIDE 0.9% FLUSH 10 ML FLUSH IV FLUSH SCH ×2 (09:00→21:00)
[2017-08-09 09:41] LABS: HEMOGLOBIN 7.4 GM/DL (11.6-15.3)
[2017-08-09 11:54] VITALS: BP 104/56; PULSE 74; RESP 18; TEMP 98.7; O2SAT 99
[2017-08-09] MEDS ORDERED: ALPRAZolam 0.25 MG TAB PO PRN (12:00)
[2017-08-09 16:55] VITALS: BP 102/77; PULSE 83; RESP 18; TEMP 98.7; O2SAT 100
[2017-08-09 20:01] VITALS: BP 101/57; PULSE 89; RESP 16; TEMP 98.1; O2SAT 100
--- NOTE | 2017-08-10 14:36 | HHI.DS ---
Discharge Summary Admission Date Aug 06, 2017 at 1:01 pm Discharge Date: Aug 09, 2017 Admitting Diagnosis REFRACTORY ANTERIOR EPISTAXIS (1) Post surgical epistaxis Diagnosis: Principal Procedures embolization of the right maxillary artery with 300-500 micron particles and 3mm tornado coils on 08/05, by IR Brief History - From Admission This is a 57-year-old female who was sent from her ENT clinic because of epistaxis. Started 2 days ago as intermittent bleeding from both nostrils worse on the right not related to trauma. Patient had nasal polyps removed from both nostrils about 10 days ago in [place]. She had nasal packing at [facility] yesterday. Today she started bleeding again and went to see Dr. Brandon who was not able to visualize the source of bleeding and was sent here for IR procedure. Dr. Holguin embolized the right maxillary artery with 300-500 micron particles and 3mm tornado coils. At this time patient seen in the recovery room with nasal packing. There is no active bleeding. Denies weakness, dizziness, chest pain and shortness of breath. States she was nauseous and vomited ingested blood yesterday. All other systems reviewed negative CBC/BMP: 08/09/17 0720 08/06/17 0600 Significant Findings Laboratory Tests Test 08/08/17 08:11 08/09/17 07:20 Hemoglobin 7.7 GM/DL (11.6-15.3) 7.4 GM/DL (11.6-15.3) Hematocrit 22.5 % (35.0-46.0) 22.0 % (35.0-46.0) Imaging Last Impressions Chest X-Ray 08/06/17 0000 Signed Impressions: Service Date/Time: Sunday, August 06, 2017 09:47 - CONCLUSION: No acute disease. Rashaun Moy MD FACR Embolization 08/05/17 0000 Signed Impressions: Service Date/Time: Saturday, August 05, 2017 13:00 - CONCLUSION: Right maxillary artery embolization with particles and coils as above. Caden Holguin MD PE at Discharge GENERAL: Well-developed, well-nourished female patient in [place]. SKIN: Warm and dry. HEAD: Atraumatic. Normocephalic. EYES: Pupils equal and round. ENT: Right nasal packing in place with mixed fresh and dried blood around nare. Mucous membranes pink and moist. CARDIOVASCULAR: Regular rate and rhythm. No murmur appreciated. RESPIRATORY: No accessory muscle use. Clear to auscultation. Breath sounds equal bilaterally. GASTROINTESTINAL: Abdomen soft, non-tender, nondistended. MUSCULOSKELETAL: Extremities without clubbing, cyanosis, or edema. No obvious deformities. NEUROLOGICAL: Awake and alert. No obvious cranial nerve deficits. Motor grossly within normal limits. Normal speech. PSYCHIATRIC: Slightly anxious mood; insight and judgment normal. Hospital Course 57-year-old female who was sent from her ENT clinic because of epistaxis. Started 2 days ago as intermittent bleeding from both nostrils worse on the right not related to trauma. Patient had nasal polyps removed from both nostrils about 10 days ago in [place]. She had nasal packing at [facility] just prior to arrival. Post surgical epistaxis: status post embolization of the right maxillary artery with 300-500 micron particles and 3mm tornado coils on 08/05. Patient with continued bleeding. Evaluated by IR and ENT, recommended transfer to [facility], patient was accepted by Dr. Keita at [facility], transferred via [facility]. Anemia secondary to acute blood loss: Transfused with 1u PRBC on 08/06. Continue to monitor H&H, currently stable with Hgb 7.7. Will transfuse if < 7. Stable. chest pain: atypical. CXR negative. Troponin negative. Improved. Hypothyroidism: Stable, continue levothyroxine DVT prophylaxis with SCD and early ambulation. Avoid chemoprophylaxis with ongoing bleeding as above. Pt Condition on Discharge: Stable Discharge Disposition: [facility] Discharge Time: > 30 minutes Discharge Instructions DIET: Follow Instructions for: As Tolerated, No Restrictions, Nothing By Mouth Activities you can perform: Regular-No Restrictions Follow up Referrals: Ear Nose Throat with Faustino Brandon MD PCP Follow-up - 1 Week Continued Medications: Levothyroxine (Synthroid) 112 Mcg Tab 112 MCG PO DAILY for Thyroid, TAB 0 Refills Monica Fritz PA-C Aug 10, 2017 2:36 pm
== END 2017-08-09 23:10 | disposition short-term general hospital (02) | DRG 908 ==
LOC: NEPD 11:01 → NEDA 13:31 → NEPGCP 16:00 → H1EA 19:40 → NEPGCP 19:41 → OBSVTOIN 08-06 13:01
PROVIDERS: ADMIT Internal Medicine; ATTEND Internal Medicine
PROC: 03LM3DZ Occlusion of Right External Carotid Artery with Intraluminal Device, Percutaneous Approach (ICD-10-PCS; principal; 2017-08-05)
PROC: 30233N1 Transfusion of Nonautologous Red Blood Cells into Peripheral Vein, Percutaneous Approach (ICD-10-PCS; 2017-08-06)
DX: J95.830 Postprocedural hemorrhage of a respiratory system organ or structure following a respiratory system procedure (principal); D62 Acute posthemorrhagic anemia; E03.9 Hypothyroidism, unspecified; R04.0 Epistaxis; R07.89 Other chest pain; Y83.8 Other surgical procedures as the cause of abnormal reaction of the patient, or of later complication, without mention of misadventure at the time of the procedure
CPT/HCPCS: 36223; 36227; 36228; 36430; 61626; 71045; 75894; 76937; 80048; 80053; 84484; 85014; 85018; 85025; 85027; 85610; 85730; 86850; 86900; 86901; 86920; 93005; 99152; 99153; C1769; C1887; C1894; G0269; J0690; J1644; J2060; J2250; J2720; J3010; J3480; J7050; P9016; Q9967